=== PATIENT | female | born 1960 | race Caucasian/White ===

== ENCOUNTER 2018-01-16 09:54 | Day surgery (SDC) | payer OTHER ==
[2018-01-16] MEDS ORDERED: MIDAZOLAM 1 MG/ML 2 ML INJ ×2 (12:46→12:47)
[2018-01-16] MEDS ORDERED: FENTAnyl 50 MCG/ML VIAL (12:46)
== END 2018-01-16 14:33 | disposition home or self-care (01) ==
LOC: GIL 09:54
DX: Z12.11 Encounter for screening for malignant neoplasm of colon (principal); D12.3 Benign neoplasm of transverse colon; K64.4 Residual hemorrhoidal skin tags; K57.31 Diverticulosis of large intestine without perforation or abscess with bleeding
CPT/HCPCS: 45380; 88305